=== PATIENT | male | born 1975 | race Two or more races ===

== ENCOUNTER 2019-03-15 00:49 | Emergency (ER) | payer BC ==
[~2019-03-15] VITALS: Ht 185.4 cm; Wt 93.9 kg
[2019-03-15 01:27] VITALS: BP 156/95
[2019-03-15] MEDS ORDERED: AMOX500C PO (01:58)
[2019-03-15] MEDS ORDERED: TRAM50TA PO (01:59)
--- NOTE | 2019-03-15 01:59 | PHYS DOC ---
Past Medical History Past Medical History: No Pertinent History Past Surgical History: No Surgical History Alcohol Use: Occasionally Drug Use: None Adult General Chief Complaint Chief Complaint: DENTAL PROBLEM HPI HPI Patient is a 44 year old male presented to ER today for evaluation of left upper dental pain for the last few day. he said his wisdom teeth is erupting, caused the pain. She denies any fever, no headache. Patient is able to open and close his mouth without a problem. Review of Systems Review of Systems Constitutional: Denies fever or chills [] Eyes: Denies change in visual acuity, redness, or eye pain [] HENT: Denies nasal congestion or sore throat . POSITIVE FOR DENTAL PAIN Respiratory: Denies cough or shortness of breath [] Cardiovascular: No additional information not addressed in HPI [] GI: Denies abdominal pain, nausea, vomiting, bloody stools or diarrhea [] : Denies dysuria or hematuria [] Musculoskeletal: Denies back pain or joint pain [] Integument: Denies rash or skin lesions [] Neurologic: Denies headache, focal weakness or sensory changes [] Endocrine: Denies polyuria or polydipsia [] All other systems were reviewed and found to be within normal limits, except as documented in this note. Current Medications Current Medications Current Medications Medications (Trade) Dose Ordered Sig/[place] Start Time Stop Time Status Last Admin Dose Admin Amoxicillin (Amoxil) 1,000 mg 1X ONCE 03/15/19 02:15 03/15/19 02:16 DC 03/15/19 02:26 1,000 MG Ketorolac Tromethamine (Toradol Im) 60 mg 1X ONCE 03/15/19 02:15 03/15/19 02:16 DC 03/15/19 02:26 60 MG Allergies Allergies Allergies Coded Allergies Type Severity Reaction Last Updated Verified No Known Drug Allergies 04/21/15 No Physical Exam Physical Exam Constitutional: Well developed, well nourished, no acute distress, non-toxic appearance. [] HENT: Normocephalic, atraumatic, bilateral external ears normal, oropharynx moist, no oral exudates, nose normal. The area of left upper 3rd molar is tender to palpation. Eyes: PERRLA, EOMI, conjunctiva normal, no discharge. [] Neck: Normal range of motion, no tenderness, supple, no stridor. [] Cardiovascular:Heart rate regular rhythm, no murmur [] Lungs & Thorax: Bilateral breath sounds clear to auscultation [] Abdomen: Neurologic: Alert and oriented X 3, normal motor function, normal sensory function, no focal deficits noted. [] Psychologic: Affect normal, judgement normal, mood normal. [] Current Patient Data Vital Signs Vital Signs Date Time Temp Pulse Resp B/P (MAP) Pulse Ox O2 Delivery O2 Flow Rate FiO2 03/15/19 01:27 98.1 74 18 156/95 (115) 95 Room Air 98.1 EKG EKG [] Radiology/Procedures Radiology/Procedures [] Course & Med Decision Making Course & Med Decision Making Pertinent Labs and Imaging studies reviewed. (See chart for details) [] Dragon Disclaimer Dragon Disclaimer This electronic medical record was generated, in whole or in part, using a voice recognition dictation system. Departure Departure Impression: Primary Impression: Pain, dental Disposition: HOME, SELF-CARE Condition: STABLE Referrals: NO PCP (PCP) Patient Instructions: Dental Pain Scripts Tramadol Hcl (TRAMADOL HCL) 50 Mg Tablet 50 MG PO Q6HRS PRN for PAIN, #20 TAB Prov: LINDSAY ABDULLAHI DO 03/15/19 Amoxicillin (AMOXICILLIN) 500 Mg Capsule 500 MG PO TID, #30 CAP 0 Refills Prov: LINDSAY ABDULLAHI DO 03/15/19 LINDSAY ABDULLAHI DO Mar 15, 2019 01:59
[2019-03-15] MEDS ORDERED: AMOXICILLIN 250 MG CAPSULE. PO ONE (02:15)
[2019-03-15] MEDS ORDERED: KETOROLAC 60 MG/2 ML VIAL. IM ONE (02:15)
== END 2019-03-15 02:43 | disposition home or self-care (01) ==
LOC: ER 00:49
DX: K08.89 Other specified disorders of teeth and supporting structures (principal)
CPT/HCPCS: 96372; 99283; J1885